=== PATIENT | male | born 1995 | race American Indian/Alaskan Native ===

== ENCOUNTER 2019-04-02 14:12 | Outpatient (CLI) | payer OTHER ==
--- NOTE | 2019-04-02 15:05 | XRay Report ---
BILATERAL HIPS WITH PELVIS, 3 VIEWS INDICATION: M25.552 YOKO HIP PAIN. COMPARISON: None. IMPRESSION: There is been previous surgical pinning of both femoral necks with a single orthopedic s crew. 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 There is no evidence for acu te fracture, bone lesion or femoral head necrosis. The soft tissues are unremarkable. AP view of the pelvis is within normal limits. Signer Name: Refugio Bean Jr, MD Signed: 04/02/2019 3:00 PM Workstation Name: [id number]
== END 2019-04-02 14:13 | disposition home or self-care (01) ==
LOC: XRAY 14:12
PROVIDERS: ATTEND Internal Medicine
DX: Z02.71 Encounter for disability determination (principal); M16.11 Unilateral primary osteoarthritis, right hip; M25.552 Pain in left hip
CPT/HCPCS: 73521